=== PATIENT | female | born 1935 | race Caucasian/White ===

== ENCOUNTER 2017-11-27 12:07 | Emergency (ER) | payer OTHER ==
[~2017-11-27] VITALS: Ht 157.5 cm; Wt 57.0 kg
[~2017-11-27 12:07] MED LIST: DIVA250ER PO; HYDR-3580 PO; ZOFR4TAB3 SL
[2017-11-27 12:15] VITALS: BP 129/67; PULSE 89; RESP 16; TEMP 98.6; O2SAT 92
[2017-11-27] MEDS ORDERED: TRAM50TA PO (12:24)
[2017-11-27] MEDS ORDERED: OXYC1TAB63 PO (12:24)
--- NOTE | 2017-11-27 12:35 | PD ---
HPI Chief Complaint: Musculoskeletal Complaint Time Seen by Provider: 12:19 Travel History International Travel<30 days: No Contact w/Intl Traveler<30days: No Traveled to known affect area: No History of Present Illness HPI 82-year-old female presents to the emergency department with complaint of right wrist pain 2 days. She was apparently sleepwalking the other night and fell and injured her right wrist. She did follow-up with her primary care provider, [facility], and was called today and told she does have a broken bone in her wrist and to follow-up with orthopedics. They could not get an appointment with orthopedics until the and the patient says she is in too much pain to wait that long. She denies hitting her head or loss of consciousness. Denies neck pain or back pain. Denies anticoagulant therapy. Denies paresthesias, loss of sensation to the affected extremity. Has Velcro wrist splint in place. She is prescribed tramadol once a day, which has not helped with her pain. She has also been trying to take Tylenol. Her gave her half of 1 of his 5 mg Lortabs, which the patient says has helped her pain. Rates pain 8/10, prior to Lortab. Aggravated with movement. Pain decreased with Lortab. I will adductors his primary care provider. No known allergies. History of COPD. Has no other medical complaints. No other modifying factors or associated signs and symptoms. PFSH Past Medical History Cancer: No Cardiovascular Problems: No COPD: Yes Diabetes: No Endocrine: No Gastrointestinal Disorders: No Genitourinary: No Hepatitis: No Hiatal Hernia: No Hypertension: No Immune Disorder: No Musculoskeletal: Yes (arthritis, neck pain on l side) Neurologic: No Psychiatric: No Reproductive: No Respiratory: Yes (copd) Thyroid Disease: No ?: Not Menopausal: Yes Past Surgical History AICD: No Section: Yes Gynecologic Surgery: Yes (3 sections, partial hysterectomy) Joint Replacement: No Pacemaker: No Other Surgery: Yes Social History Alcohol Use: No Tobacco Use: No Substance Use: No Allergies-Medications (Allergen,Severity, Reaction): Coded Allergies: No Known Allergies (Verified Adverse Reaction, Unknown, 11/27/17) Reported Meds & Prescriptions Reported Meds & Active Scripts Active Keflex (Cephalexin) 500 Mg Cap 500 Mg PO Q6H 7 Days [place] (Hydrocodone-Acetaminophen) 5 Mg-325 Mg Tab 1 Tab PO Q4-6H PRN Reported Oxycodone-Acetaminophen 5-325 mg Tab 1 Tab PO Q4H PRN Tramadol (Tramadol HCl) 50 Mg Tab 50 Mg PO Q4H PRN Review of Systems Except as stated in HPI: all other systems reviewed are Neg Physical Exam Narrative GENERAL: Well-nourished, well-developed elderly, female patient, in no acute distress SKIN: Warm and dry. HEAD: Atraumatic. Normocephalic. EYES: Pupils equal and round. No scleral icterus. No injection or drainage. ENT: Mucosa pink and moist. Airway patent. NECK: Trachea midline. CARDIOVASCULAR: Regular rate. RESPIRATORY: No accessory muscle use. GASTROINTESTINAL: Flat. MUSCULOSKELETAL: Right wrist with tenderness on palpation; with erythema and warmth to touch, edema, and ecchymosis; unable to assess ROM secondary to patient guarding. Right hand with full range of motion at all finger joints; fingers are pink and warm. Right upper extremity is supple and non-tense with 2 + radial pulse and sensory intact. No obvious deformities. No clubbing. No cyanosis. NEUROLOGICAL: Awake and alert. Oriented 3. No obvious cranial nerve deficits. Motor grossly within normal limits. Normal speech. PSYCHIATRIC: Appropriate mood and affect; insight and judgment normal. Data Data Last Documented VS Vital Signs Date Time Temp Pulse Resp B/P (MAP) Pulse Ox O2 Delivery O2 Flow Rate FiO2 11/27/17 12:15 98.6 89 16 129/67 (87) 92 Orders Orders Wrist, Complete ([id number]) (11/27/17 12:24) Ice/Cold Pack (11/27/17 12:24) Splint Or Brace Apply/Monitor (11/27/17 13:00) Sling Cradle Arm (11/27/17 ) Acetamin-Hydrocod 325-5 Mg ([place] 5-325 (11/27/17 13:15) Ed Discharge Order (11/27/17 14:23) MDM Medical Decision Making Medical Screen Exam Complete: Yes Emergency Medical Condition: Yes Medical Record Reviewed: Yes Differential Diagnosis Fracture, sprain, contusion Narrative Course 82-year-old female with right wrist injury. Did follow up with her primary care provider and was called and told today that she has a fracture of her right wrist. They called to make an appointment with orthopedics and they could not see her until the . The patient is in too much pain and cannot wait. Right wrist and forearm does have extensive ecchymosis and with erythema and warmth to touch. I cannot differentiate if the erythema and warmth to touch is cellulitis or response of inflammation, so I will prescribe antibiotics to treat possible cellulitis. I do not see any open wounds, and most likely the erythema and warmth to touch is related to inflammation, but I feel more comfortable prescribing antibiotics just in case. Patient's oxygen saturation is 92% on room air. She has history of COPD and says that this is normal for her baseline. I did review her medical record and she has oxygen saturations charted between 93-95%. She is in no acute distress and denies chest pain, shortness of breath. 1424: I am Discharging the patient prior to being able to review the right wrist x-ray report secondary to IT technicalities and unable to upload the report. I do see a suspected fracture in the distal radius. Patient was placed in a sugar tong splint and given arm sling for support. She was prescribed Keflex and Lortab for home. Instructed patient to follow-up with hand surgeon or orthopedic surgeon within 1 week. Instructed patient to follow up with primary care provider. Patient verbalizes understanding and agreement with treatment plan. Patient is medically cleared and stable for discharge. Discussed reasons to return to the emergency department. Patient agrees with treatment plan. The patients vital signs are stable and the patient is stable for outpatient follow-up and treatment. Patient discharged home, stable and in no acute distress. 1443: Right wrist x-ray concluded: Wrist X-Ray 11/27/17 1224 Signed Impressions: CONCLUSION: Acute distal radial metaphyseal fracture without angulation or distraction. Diagnosis Primary Impression: Wrist fracture, right Qualified Codes: S62.101A - Fracture of unspecified carpal bone, right wrist, initial encounter for closed fracture Referrals: Hand Surgeon Orthopaedic Surgeon Primary Care Physician Patient Instructions: General Instructions, Wrist Fracture in Adults (ED) Additional Instructions: Lortab as directed and as needed for pain; do not drink alcohol or operate machinery while taking Lortab; you may alternate Lortabs with ibuprofen, but not Tylenol Ibuprofen as directed and as needed to reduce pain Rest, ice, compress, and elevate extremity to decrease pain and inflammation Splint for support; do not remove splint until you follow up with the orthopedic surgeon or the hand surgeon Avoid aggravating activity; increase activity as tolerated Arm sling for support Follow-up with primary care provider Follow-up with orthopedic surgeon or hand surgeon Return to the emergency department immediately with worsening symptoms Med/Other Pt SpecificInfo: Prescription(s) given Scripts Cephalexin (Keflex) 500 Mg Cap 500 MG PO Q6H for Infection for 7 Days, #28 CAP 0 Refills Prov: Krysten Almanza 11/27/17 Hydrocodone-Acetaminophen ([place]) 5 Mg-325 Mg Tab 1 TAB PO Q4-6H Y for PAIN, #18 TAB 0 Refills Prov: Krysten Almanza 11/27/17 Disposition: 01 DISCHARGE HOME Condition: Stable Krysten Almanza Nov 27, 2017 12:35
[2017-11-27] MEDS ORDERED: NORC5TAB PO (12:59)
[2017-11-27] MEDS ORDERED: CEPH-460 PO (13:02)
[2017-11-27] MEDS ORDERED: ACETAMINOPHEN/HYDROcodone 325 MG/5 MG TAB PO ONE (13:15)
--- NOTE | 2017-11-27 14:39 | RADRPT ---
EXAM DATE: 11/27/2017 12:36 PM EDT AGE/SEX: 82 years / Female INDICATIONS: Right wrist pain post fall. CLINICAL DATA: This is the patient's initial encounter. Patient reports that signs and symptoms have been present for 2 days and indicates a pain score of 10/10. MEDICAL/SURGICAL HISTORY: None. None. COMPARISON: No prior exams available for comparison. FINDINGS: An acute nondisplaced fracture involving the distal radial metaphysis. It is comminuted. There is a c omponent that extends to the radiocarpal articular surface. No angulation or distraction. Distal ulna is intact. 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 Diffuse osteopenia. No radiopaque foreign bodies. CONCLUSION: Acute distal radial metaphyseal fracture without angulation or distraction. Electronically signed by: Jose Angel Hand MD 11/27/2017 12:50 PM EDT
== END 2017-11-27 14:54 | disposition home or self-care (01) ==
LOC: PHEFT 12:07
DX: S52.501A Unspecified fracture of the lower end of right radius, initial encounter for closed fracture (principal); W19.XXXA Unspecified fall, initial encounter; J44.9 Chronic obstructive pulmonary disease, unspecified; M19.90 Unspecified osteoarthritis, unspecified site
CPT/HCPCS: 73110; 99283